=== PATIENT | male | born 1945 | race Caucasian/White ===

== ENCOUNTER 2018-04-13 11:13 | Emergency (ER) | payer MEDICARE, OTHER ==
[~2018-04-13] VITALS: Ht 175.3 cm; Wt 81.8 kg
[2018-04-13 12:17] VITALS: BP 162/111
--- NOTE | 2018-04-13 12:29 | NUR ---
O Addendum: 04/13/18 at 1229 by ADDIEONTOYA PATIENT REFUSED HUNTER AT THIS TIME.
== END 2018-04-13 13:24 | disposition home or self-care (01) ==
LOC: ER 11:13
DX: Z46.6 Encounter for fitting and adjustment of urinary device (principal); Z87.891 Personal history of nicotine dependence; Z91.030 Bee allergy status
CPT/HCPCS: 99281